=== PATIENT | female | born 1970 | race Caucasian/White ===

== ENCOUNTER → 2018-11-06 | Outpatient (CLI) | payer BC ==
--- NOTE | 2018-11-09 08:19 | MM ---
Reason for exam: screening (asymptomatic). Last mammogram was performed 2 years and 11 months ago. Physical Findings: A clinical breast exam by your physician is recommended on an annual basis and results should be correlated with mammographic findings. MG Screening Mammo w CAD Bilateral CC and MLO view(s) were taken. Prior study comparison: December 15, 2015, bilateral MG screening mammo w CAD. July 30, 2011, bilateral digital screening mammo w/CAD. The breast tissue is heterogeneously dense. This may lower the sensitivity of mammography. There are benign appearing regional round calcifications in the left breast. There is no discrete abnormality. ASSESSMENT: Benign, BI-RAD 2 RECOMMENDATION: Routine screening mammogram of both breasts in 1 year.
== END | disposition home or self-care (01) ==
LOC: RADMAMWWP 10:05
PROVIDERS: ATTEND Family Medicine
DX: Z12.31 Encounter for screening mammogram for malignant neoplasm of breast (principal)
CPT/HCPCS: 77067

== ENCOUNTER → 2019-03-12 | Outpatient (CLI) | payer BC ==
--- NOTE | 2019-03-12 20:03 | MR ---
EXAMINATION TYPE: MR knee RT wo con DATE OF EXAM: 03/12/2019 COMPARISON: None HISTORY: Rt knee pain TECHNIQUE: Multiplanar, multisequence imaging of the right knee is performed without IV contrast. FINDINGS: MEDIAL MENISCUS: There is a complex tear involving the posterior horn and body of the medial meniscus . 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 CRUCIATE LIGAMENTS: The anterior and posterior cruciate ligaments are intact and unremarkable. COLLATERAL LIGAMENTS: The medial collateral ligament and lateral collateral ligament complex are inta ct. There is a grade 1 MCL strain.. EXTENSOR MECHANISM: Visualized quadriceps and patellar tendons are intact. EFFUSION: Small amount of fluid is seen in the suprapatellar bursa. POPLITEAL CYST: 1.5 x 1.2 x 1.7 cm popliteal fossa cyst TRICOMPARTMENT SPACES: There is narrowing of the tricompartment spaces. There is severe thinning and loss of articular cartilage involving both the medial and lateral patellar facet as well as the artic ular surface of the medial tibia and femur and lateral articular surface of the femur compatible with grade III chondromalacia. BONE MARROW SIGNAL: No focal abnormal marrow signal is appreciated. IMPRESSION: 1. Significant osteoarthritis with marked chondromalacia compatible with grade 3 involving the articu lar medial femur and tibia, patellar cartilage and lateral articular femoral cartilage. 2. Complex tear posterior horn and body medial meniscus. 3. Grade 1 MCL sprain. 4. Intrasubstance signal involving the anterior posterior horn of the lateral meniscus myxoid degener ation favored over subtle tear correlate clinically. 5. There is an intraosseous lesion of the distal diaphysis of the femur which is well-circumscribed a nd has a narrow zone of transition measuring 1.4 cm. Most likely a benign etiology. Correlation with x-ray and bone scan recommended.
== END | disposition home or self-care (01) ==
LOC: RADMRIMAIN 18:38
PROVIDERS: ATTEND Family Medicine
DX: S83.231A Complex tear of medial meniscus, current injury, right knee, initial encounter (principal); S83.411A Sprain of medial collateral ligament of right knee, initial encounter; M89.9 Disorder of bone, unspecified

== ENCOUNTER → 2019-03-29 | Outpatient (CLI) | payer BC ==
[2019-03-29 16:43] LABS: Basophils % (A) 1 %; Eosinophils # (A) 0.1 k/uL (0-0.7); Eosinophils % (A) 3 %; HGB 13.5 gm/dL (11.4-16.0); Lymphocytes # (A) 1.6 k/uL (1.0-4.8); Lymphocytes % (A) 36 %; MCHC 31.3 g/dL (31.0-37.0); MCV 89.4 fL (80.0-100.0); Mean Platelet Volume 8.2; Monocytes # (A) 0.2 k/uL (0-1.0); Monocytes % (A) 5 %; Neutrophils # (A) 2.4 k/uL (1.3-7.7); Neutrophils % (A) 54 %; Platelet Count 237 k/uL (150-450); RDW 12.4 % (11.5-15.5); WBC 4.4 k/uL (3.8-10.6)
== END | disposition home or self-care (01) ==
LOC: LABPAT 16:09
PROVIDERS: ATTEND Orthopaedic Surgery
DX: Z01.812 Encounter for preprocedural laboratory examination (principal); M17.11 Unilateral primary osteoarthritis, right knee
CPT/HCPCS: 36415; 80051; 85025; 87070

== ENCOUNTER 2019-04-05 05:45 | Day surgery (SDC) | payer BC ==
[2019-03-31 10:43] VITALS: BMI 34.4
--- NOTE | 2019-04-04 12:06 | HP ---
HISTORY AND PHYSICAL REASON FOR ADMISSION: Surgery is scheduled for 04/05/2019. HISTORY OF PRESENT ILLNESS: Susan Su is a 48-year-old patient seen with symptomatic right knee osteoarthritis. We discussed options for treatment. She elected to proceed with right total knee arthroplasty. Consent regarding the procedure was obtained. PAST MEDICAL HISTORY: Noncontributory. PAST SURGICAL HISTORY: section. MEDICATIONS: Adderall, ibuprofen. ALLERGIES: ARE PAXIL AND CODEINE. SOCIAL HISTORY: She denies tobacco use. PHYSICAL EXAMINATION: Evaluation of the right knee range of motion is -2/3-120. Mild effusion. Tenderness medial joint line. Crepitus medial patellofemoral compartments with range of motion. Pain with patellofemoral compression. Ligaments stable. Hip rotation without pain. Distal neurovascular intact. RADIOGRAPHS: Right knee radiographs reveal severe osteoarthritic changes. IMPRESSION: Right knee osteoarthritis. PLAN: Right total knee arthroplasty. Surgery is 04/05/2019. MMODL / IJN: [id number] /
[~2019-04-05 05:45] MED LIST: ACETAMINOPHEN TAB 500 MG TAB PO ONE; MELOXICAM 7.5 MG TAB PO ONE; TRANEXAMIC ACID 1,000 MG in SODIUM CHLORIDE 0.9% 100 ML IVPB ONE
[2019-04-05] MEDS ORDERED: ROPIVACAINE 246.25 MG, EPINEPHrine 0.5 MG, KETOROLAC 30 MG, cloNIDine HCL/PF 80 MCG, WA... MISCELLANE ONE ×5 (06:00)
[2019-04-05] MEDS ORDERED: DEXAMETHASONE SOD PHOSPHATE 10 MG/ML 1 ML VIAL IV ONE (06:03)
[2019-04-05] MEDS ORDERED: SCOPOLAMINE 1.5MG/72HR PATCH TRANSDERM ONE (06:03)
[2019-04-05] MEDS ORDERED: MIDAZOLAM 2 MG/2 ML VIAL IV PRN (06:03)
[2019-04-05] MEDS ORDERED: ONDANSETRON 4 MG/2 ML VIAL IVP ONE (06:03)
[2019-04-05] MEDS ORDERED: LACTATED RINGERS 1,000 ML IV SCH (06:03)
[2019-04-05] MEDS ORDERED: fentaNYL (PF) 50 MCG/ML 2 ML AMP IV PRN (06:03)
[2019-04-05] MEDS ORDERED: MIDAZOLAM 2 MG/2 ML VIAL IVP ONE (06:51)
[2019-04-05] MEDS ORDERED: fentaNYL (PF) 50 MCG/ML 2 ML AMP IVP ONE (06:52)
[2019-04-05] MEDS ORDERED: TRANEXAMIC ACID 1,000 MG/10 ML VIAL ONE (07:28)
[2019-04-05] MEDS ORDERED: LIDOCAINE 1% INJ 10MG/ML (20 ML MDV) ONE (07:28)
[2019-04-05] MEDS ORDERED: MIDAZOLAM 2 MG/2 ML VIAL ONE (07:28)
[2019-04-05] MEDS ORDERED: SODIUM CHLORIDE 0.9% 100 ML BAG ONE (07:28)
[2019-04-05] MEDS ORDERED: ROCURONIUM BROMIDE 10 MG/ML 5 ML VIAL IV ONE (07:28)
[2019-04-05] MEDS ORDERED: PROPOFOL 10 MG/ML 20 ML VIAL IV ONE (07:28)
[2019-04-05] MEDS ORDERED: SUCCINYLCHOLINE CHLORIDE 100 MG/5 ML SYR IV ONE (07:28)
[2019-04-05] MEDS ORDERED: fentaNYL (PF) 50 MCG/ML 2 ML AMP ONE (07:28)
--- NOTE | 2019-04-05 07:59 | P.ANPRN ---
Procedure Note - Anesthesia - Nerve Block Performed Right Adductor Canal Infusion Time Out Performed: Yes Date of Procedure: 04/05/19 Procedure Start Time: 06:50 Location of Patient: PreOp Indication: Acute Post-Operative Pain, Dx/Pain Location, Requested by Surgeon Sedation Type: Sedate with meaningful contact maintained Position: Supine Catheter: Indwelling Needle Types: Pajunk Needle Gauge: 21 Ultrasound used to visualize needle placement: Yes Ultrasound used to observe medication spread: Yes Injectate: 0.5% Ropivacaine (see comment for volume) (20ml) Blood Aspirated: No Pain Paresthesia on Injection Noted: No Resistance on Injection: Normal Image Stored and Saved: Yes Events: Uneventful and Well Tolerated
--- NOTE | 2019-04-05 08:02 | P.ANPRN ---
Procedure Note - Anesthesia - Nerve Block Performed Right Other (see comment) Single Time Out Performed: Yes (RIGHT IPACK NERVE BLOCK WITH USG) Date of Procedure: 04/05/19 Procedure Start Time: 06:55 Location of Patient: PreOp Indication: Acute Post-Operative Pain, Dx/Pain Location, Requested by Surgeon Sedation Type: Sedate with meaningful contact maintained Preparation: Sterile Prep Position: Left Lateral Catheter: None Needle Gauge: 21 Ultrasound used to visualize needle placement: Yes Ultrasound used to observe medication spread: Yes Injectate: 0.5% Ropivacaine (see comment for volume) (20ml) Blood Aspirated: No Pain Paresthesia on Injection Noted: No Resistance on Injection: Normal Image Stored and Saved: Yes Events: Uneventful and Well Tolerated
[2019-04-05] MEDS ORDERED: ceFAZolin 3,000 MG in SODIUM CHLORIDE 0.9% IRRIGATIO 3,000 ML IRRIGATION ONE (08:05)
[2019-04-05] MEDS ORDERED: ROPIVACAINE 0.2%-NS ON-Q PUMP 1,090 MG, EMPTY PAIN BALL 1 EACH MISCELLANE PRN (08:14)
[2019-04-05] MEDS ORDERED: LACTATED RINGERS 1,000 ML IV ONE ×2 (08:51→09:26)
[2019-04-05] MEDS ORDERED: HYDROcodone/APAP 7.5-325MG 1 EACH TAB PO PRN (09:26)
[2019-04-05] MEDS ORDERED: HYDROmorphone 1 MG/ML 1 ML SYRINGE IVP PRN (09:26)
[2019-04-05] MEDS ORDERED: ONDANSETRON 4 MG/2 ML VIAL IVP PRN (09:26)
[2019-04-05] MEDS ORDERED: HYDROcodone/APAP 5-325MG 1 EACH TAB PO PRN (09:26)
[2019-04-05] MEDS ORDERED: HYDROmorphone 0.5 MG/0.5 ML SYRINGE IVP PRN ×2 (09:26)
[2019-04-05] MEDS ORDERED: NALOXONE 0.4 MG/ML 1 ML VIAL IV PRN (09:26)
--- NOTE | 2019-04-05 09:26 | P.OP ---
Date of Procedure: 04/05/19 Preoperative Diagnosis: Right knee osteoarthritis Postoperative Diagnosis: Right knee osteoarthritis Procedure(s) Performed: Right total knee arthroplasty Implants: 1. Depuy attune size 4 right cruciate retaining cemented femur 2. Depuy attune size 4 fixed bearing cemented tibial baseplate 3. Depuy attune size 4 fixed bearing cruciate retaining 12 mm polyethylene tibial insert 4. Depuy attune 35 mm all polyethylene cemented patella Anesthesia: GETA, regional (Adductor canal catheter), local Surgeon: Madhu Ross Certified Ophthalmic Assistant #1: Doron Smith Estimated Blood Loss (ml): 40 Pathology: other (Bone) Condition: stable Disposition: PACU Indications for Procedure: 48-year-old patient seen with symptomatic right knee osteoarthritis. After having options regarding treatment discussed, she elected to proceed with total knee arthroplasty. Operative Findings: See description of procedure Description of Procedure: Patient was taken to the operative suite after having an adductor canal catheter placed by the department of anesthesia. Patient underwent a general anesthetic by the department of anesthesia. Patient was given preoperative IV intake antibiotics and TXA. A well-padded tourniquet was placed about the right lower extremity. The lower extremity was then prepped and draped in the normal sterile orthopedic fashion. The extremity was elevated, a tourniquet was insufflated to 300. A standard anterior incision was made sharply through skin. Dissection was taken down through the subcutaneous soft tissues down to the extensor mechanism. A medial arthrotomy was performed, patella was everted and knee was flexed. There was advanced osteoarthritis noted. I introduced my distal intramedullary femoral drill. I then introduced the distal femoral cutting jig. Moe AGUILLON secured the cutting jig with 2 pins. I held retractors in position while Moe AGUILLON performed the distal femoral resection through the guide area we now removed her distal femoral cutting guide. We now placed our 4-in-1 femoral cutting block and positioned and it was secured with 2 pins by Moe AGUILLON while I held the block in position. The distal femoral finishing was now completed. A proximal tibial cutting guide was positioned. I held the guide in the appropriate position with both hands well Moe AGUILLON inserted stabilizing pins into the guide. Proximal tibial cut was made. We now placed a trial femoral component into position, along with an appropriate size tibial tray and insert. We now took the knee through range of motion and had full extension good flexion and good overall soft tissue balance noted. The patella was everted and stabilized with 2 towel clips held by Moe AGUILLON while I performed a flush with patellar quad tendon utilizing a fresh sawblade. We templated the patella, appropriate drill holes were made. An appropriate trial patella was positioned, knee was taken through full range of motion with the patella tracking very nicely. The trial patella was removed. Drill holes were made through the femoral component. All trial components were removed after marking off the appropriate rotation of the tibia. Retractors were now positioned along the proximal tibia. An appropriate keel punch was made with the appropriate size tibial guide by myself on Moe AGUILLON assisted by holding retractors. At this point appropriate size implants were chosen and opened. The joint was irrigated copiously with pulse lavage mechanical irrigation. The posterior capsule was infiltrated with local analgesic. The w ound was irrigated with pulse lavage mechanical irrigation. We mixed antibiotic methylmethacrylate. We placed the knee into flexion. We placed multiple retractors assisted by Moe AGUILLON to expose the proximal tibia. Once the methyl methacrylate was ready, the tibial component was cemented into place removing any excess methylmethacrylate form by both myself and Moe AGUILLON. The femoral component was cemented into place removing the removing any excess methylmethacrylate performed by both myself and Moe AGUILLON. We then inserted the appropriate size polyethylene tibial insert. We made sure that it was locked into position. We took the knee into full extension, and then back in a flexion making sure we had removed any excess methylmethacrylate. The patellar component was then cemented down and secured with clamp. Excess methylmethacrylate removed. We kept the knee in full extension, patellar clamp in position until methylmethacrylate had hardened. Once it had hardened the patellar clamp was removed. The knee was taken through full range of motion. The patella tracked nicely. There was good soft tissue balancing. The tourniquet was now released. Additional hemostasis was achieved via electrocautery. A second gram of TXA was given. The wound again was irrigated with pulse lavage mechanical irrigation. The superficial soft tissues were infiltrated local analgesic. The extensor mechanism was repaired with Vicryl. We checked the repair with range of motion and it was stable. The subcutaneous soft tissues were repaired with Vicryl in layers. The skin was approximated with pernio/Dermabond. Sterile dressings were applied followed by loose web roll and Mohit bandage. The patient was transferred to a bed, and taken to recovery in stable and satisfactory condition. Moe AGUILLON assisted with this complex procedure.
[2019-04-05 09:44] VITALS: TEMP 97.7
[2019-04-05] MEDS ORDERED: HYDROmorphone 1 MG/ML 1 ML SYRINGE IVP ONE ×2 (09:47→10:05)
[2019-04-05] MEDS ORDERED: HYDROcodone/APAP 5-325MG 1 EACH TAB PO ONE (11:25)
--- NOTE | 2019-04-05 11:48 | XR ---
EXAMINATION TYPE: XR knee limited RT DATE OF EXAM: 04/05/2019 COMPARISON: None HISTORY: Postop knee replacement TECHNIQUE: 2 view right knee FINDINGS: Tibial and femoral components of in place. No acute fractures are evident. Postsurgical sourav nges are within the soft tissues. IMPRESSION: 1. No acute fracture post knee replacement.
[2019-04-05 12:39] VITALS: RESP 16
[2019-04-05 13:34] VITALS: BP 120/72; PULSE 69
== END 2019-04-05 15:49 | disposition home health service (06) ==
LOC: OR 05:45
PROVIDERS: ATTEND Orthopaedic Surgery
DX: M17.11 Unilateral primary osteoarthritis, right knee (principal); Z88.8 Allergy status to other drugs, medicaments and biological substances; Z88.5 Allergy status to narcotic agent; Z98.890 Other specified postprocedural states; Z79.899 Other long term (current) drug therapy; Z79.1 Long term (current) use of non-steroidal anti-inflammatories (NSAID)
CPT/HCPCS: 27447; 97161; 81025; 64450; 64448; 76942; 88300; 73560; C1776; C1713; J2250; J0171; J1100; J0690 ×2; J2405; J2001; J3010; J1885; J1170; J2795 ×2; J0330; J2704; J0735

== ENCOUNTER → 2019-04-12 | Outpatient (CLI) | payer BC ==
--- NOTE | 2019-04-12 19:36 | US ---
EXAMINATION TYPE: US venous doppler duplex LE RT DATE OF EXAM: 04/12/2019 7:04 PM COMPARISON: NONE CLINICAL HISTORY: R22.41 Localized swelling, mass and lump, right... Right knee replacement 1 week ag o. Localized swelling, mass, and lump. No hx of DVT. Patient takes baby aspirin. SIDE PERFORMED: Right TECHNIQUE: The lower extremity deep venous system is examined utilizing real time linear array sonog j luis with graded compression, doppler sonography and color-flow sonography. VESSELS IMAGED: External Iliac Vein (EIV) Common Femoral Vein Deep Femoral Vein Greater Saphenous Vein * Femoral Vein Popliteal Vein Small Saphenous Vein * Proximal Calf Veins (* superficial vessels) Right Leg: No evidence of DVT in veins imaged from popliteal vein to EIV. Rouleaux flow is seen. Burks ited visibility of prox calf veins. Right calf edema is seen. Cannot rule out DVT in vessels below th e knee. Difficult to scan posterior to the knee due to patient's limited range of motion. IMPRESSION: No demonstrated evidence of deep vein thrombosis.
== END | disposition home or self-care (01) ==
LOC: RADUSMAIN 18:02
PROVIDERS: ATTEND Family Medicine
DX: R22.42 Localized swelling, mass and lump, left lower limb (principal)

== ENCOUNTER → 2020-04-24 | Outpatient (CLI) | payer BC ==
--- NOTE | 2020-04-26 08:00 | MM ---
Reason for exam: screening (asymptomatic). Last mammogram was performed 1 year and 6 months ago. Physical Findings: A clinical breast exam by your physician is recommended on an annual basis and results should be correlated with mammographic findings. MG Screening Mammo w CAD Bilateral CC and MLO view(s) were taken. Prior study comparison: November 06, 2018, bilateral MG screening mammo w CAD. December 15, 2015, bilateral MG screening mammo w CAD. The breast tissue is heterogeneously dense. This may lower the sensitivity of mammography. No significant changes when compared with prior studies. ASSESSMENT: Benign, BI-RAD 2 RECOMMENDATION: Routine screening mammogram of both breasts in 1 year.
== END ==
LOC: RADMAMWWP 16:12
PROVIDERS: ATTEND Family Medicine
DX: Z12.31 Encounter for screening mammogram for malignant neoplasm of breast (principal)
CPT/HCPCS: 77067

== ENCOUNTER → 2022-02-12 | Outpatient (CLI) | payer BC ==
--- NOTE | 2022-02-13 18:12 | MM ---
Reason for Exam: Screening (asymptomatic). Last mammogram was performed 1 year(s) and 9 month(s) ago. Patient History: Menarche at age 14. First Full-Term at age 20. Premenopausal. Risk Values: Keerthi 5 year model risk: 0.7%. NCI Lifetime model risk: 6.6%. Prior Study Comparison: 12/15/2015 Bilateral Screening Mammogram, [facility]. 11/06/2018 Bilateral Screening Mammogram, [facility]. 04/24/2020 Bilateral Screening Mammogram, [facility]. Tissue Density: The breast tissue is heterogeneously dense. This may lower the sensitivity of mammography. Findings: Analyzed By CAD. There are some new grouped calcifications at the 12:00 anterior position right breast. Closer evaluation of main dictation recommended. The craniocaudal projection there is a focal area of increased density within the posterior right mid breast. This is 8 cm the nipple. Additional workup is recommended. No suspicious groups of microcalcifications, spiculated or lobular masses, architectural distortion or other secondary signs of malignancy are mammographically apparent. Overall Assessment: Incomplete: need additional imaging evaluation, BI-RAD 0 Management: Diagnostic Mammogram of the right breast. A negative mammogram report should not preclude additional follow up of suspicious palpable abnormalities. Patient should continue monthly self breast exam. A clinical breast exam by your physician is recommended on an annual basis and results should be correlated with mammographic findings. Electronically signed and approved by: Cristobal Martin D.O. Radiologis
== END | disposition home or self-care (01) ==
LOC: RADMAMWWP 16:53
PROVIDERS: ATTEND Family Medicine
DX: Z12.31 Encounter for screening mammogram for malignant neoplasm of breast (principal)
CPT/HCPCS: 77063; 77067

== ENCOUNTER → 2022-02-18 | Outpatient (CLI) | payer BC ==
--- NOTE | 2022-02-18 08:56 | USB ---
Reason for Exam: Additional evaluation requested from abnormal screening. Patient History: Menarche at age 14. First Full-Term at age 20. Premenopausal. Risk Values: Keerthi 5 year model risk: 0.7%. NCI Lifetime model risk: 6.6%. Prior Study Comparison: 11/06/2018 Bilateral Screening Mammogram, [facility]. 04/24/2020 Bilateral Screening Mammogram, [facility]. 02/12/2022 Bilateral MG 3D screening mammo w/cad, [facility]. Findings: The upper section of the breast of the right breast, the axilla of the right breast and the retroareolar of the right breast were scanned. Targeted right breast ultrasound in the retroareolar from and 11-2 o'clock areas demonstrates a hypoechoic irregular shaped mass approximately 8 cm from the nipple measuring 7 x 4 x 3 mm. Overall Assessment: Highly suggestive of malignancy, BI-RAD 5 Management: Ultrasound Core Biopsy of the right breast. A clinical breast exam by your physician is recommended on an annual basis and results should be correlated with mammographic findings. This exam should not preclude additional follow-up of suspicious palpable abnormalities. Results were given to the patient verbally at the time of exam. Electronically signed and approved by: Vicente Sanford DO
--- NOTE | 2022-02-25 10:52 | MM ---
Reason for Exam: Additional evaluation requested from abnormal screening. Last screening mammogram was performed less than 1 month ago. Patient History: Menarche at age 14. First Full-Term at age 20. Premenopausal. Risk Values: Keerthi 5 year model risk: 0.7%. NCI Lifetime model risk: 6.6%. Prior Study Comparison: 07/30/2011 Bilateral Screening Mammogram, [facility]. 12/15/2015 Bilateral Screening Mammogram, [facility]. 11/06/2018 Bilateral Screening Mammogram, [facility]. 04/24/2020 Bilateral Screening Mammogram, [facility]. 02/12/2022 Bilateral MG 3D screening mammo w/cad, [facility]. Tissue Density: Right: The breast tissue is heterogeneously dense. This may lower the sensitivity of mammography. Findings: Analyzed By CAD. Redemonstration of right mass at posterior depth approximately 8 to 10 cm from nipple similar between 11-2 o'clock. Redemonstration of punctate calcifications in the retroareolar region anteriorly. Overall Assessment: Incomplete: need additional imaging evaluation, BI-RAD 0 Management: Diagnostic Breast Ultrasound of the right breast. A clinical breast exam by your physician is recommended on an annual basis and results should be correlated with mammographic findings. This exam should not preclude additional follow-up of suspicious palpable abnormalities. Results were given to the patient verbally at the time of exam. Electronically signed and approved by: Vicente Sanford DO
== END | disposition home or self-care (01) ==
LOC: RADMAMWWP 07:52
PROVIDERS: ATTEND Family Medicine
DX: R92.8 Other abnormal and inconclusive findings on diagnostic imaging of breast (principal)
CPT/HCPCS: 77061; 77065

== ENCOUNTER → 2022-02-27 | Day surgery (SDC) | payer BC ==
--- NOTE | 2022-03-04 13:26 | MM ---
Reason for Exam: Post Procedure Mammogram. Last screening mammogram was performed less than 1 month ago. Patient History: Menarche at age 14. First Full-Term at age 20. Premenopausal. Last menstrual period: 01/31/2022 Risk Values: Keerthi 5 year model risk: 0.7%. NCI Lifetime model risk: 6.6%. Prior Study Comparison: 04/24/2020 Bilateral Screening Mammogram, [facility]. 02/12/2022 Bilateral MG 3D screening mammo w/cad, [facility]. 02/18/2022 Right MG 3D work up w/cad RT, [facility]. Tissue Density: Right: The breast tissue is heterogeneously dense. This may lower the sensitivity of mammography. Pathology Description: Location: 1 o'clock, upper inner quadrant, posterior. Marker Left Behind. Cores: 5 Skin Nicks: 1 Gauge: 13 The procedure of ultrasound guided core biopsy was explained to the patient. Benefits, alternatives, and risks were discussed. An informed consent was then obtained. A timeout was performed. The patient was placed in supine positioning for imaging and for the procedure. The overlying skin was prepped and draped in usual sterile fashion. Lidocaine was used as anesthetic into the skin and subcutaneous tissue up to area of concern in the right breast. A small skin mago was made with surgical scalpel. Under ultrasound guidance, a 12-gauge vacuum assisted biopsy gun device was used to obtain 5 core samples. A biopsy clip was left in lesion. Hydromark coil core marker was placed. The patient tolerated the procedure well without any immediate complication. The patient was kept in the radiology department for short stay after the procedure and then discharged home in stable condition. Postprocedure mammogram: The patient was transferred to mammography for physician ordered post procedure mammogram for clip placement verification. Impression: Successful ultrasound guided core biopsy of area of concern in the right breast, full pathology results to follow. Recommendations: 1. Recommendations are pending pathology results. Pathology Results: Result: Malignant, Invasive ductal carcinoma. RIGHT BREAST, ONE O'CLOCK, NEEDLE CORE BIOPSY: Invasive poorly differentiated ductal carcinoma (grade 3). See Surgical Pathology Cancer Case Summary. Overall Assessment: Malignant Assessment: MG diagnostic mammo RT wo CAD - Right: Known biopsy proven malignancy, BI-RAD 6. Management: Surgical Consultation of the right breast. Electronically signed and approved by: Cristobal Martin D.O. Radiologis
== END ==
LOC: RADUSWWP 10:06
PROVIDERS: ATTEND Family Medicine
DX: C50.211 Malignant neoplasm of upper-inner quadrant of right female breast (principal); I21.9 Acute myocardial infarction, unspecified; Z17.0 Estrogen receptor positive status [ER+]
CPT/HCPCS: 88305; 88342; 88341; 77065; 19083; A4648

== ENCOUNTER → 2022-03-05 | Outpatient (CLI) | payer BC ==
[2022-03-05 15:24] VITALS: BP 145/102; PULSE 96; RESP 16; TEMP 98.5
--- NOTE | 2022-03-05 16:42 | P.GSHP ---
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 Bentley regarding a biopsy-proven right breast invasive ductal carcinoma. She underwent a bilateral mammogram which was screening on [id number]. This revealed a focal area of increased density within the posterior right mid breast. Additional workup was reviewed recommended. The patient underwent a right breast ultrasound on 1220 622. This revealed a 7 x 4 mm hypoechoic irregularly shaped mass 8 cm from the nipple. This was considered highly suggestive of malignancy. A biopsy was done on 1423. This revealed an invasive poorly d ifferentiated grade 3 year. Positive HER-2 negative ductal carcinoma. No lesions of concern were noted in the left breast. Does not feel any lumps masses or nodules of concern in either breast. Was never had surgery on her breast before. She is not complaining of any recent trauma or infection in the breast. Patient had mastitis after breast-feeding her first child. Caffeine: occasional nicotine: none chocolate: occasional BCP: 17 years, stopped at 32 Family History: (her mother is 1 of 17 and there are 159 neices and nephews) paternal aunt: breast cancer paternal cousin: breast cancer at 39 maternal uncle: brain cancer materanl greatgrandmother: breast cancer maternal great grandfather: pancreatic cancer Hormonal History: menarche: 15 , breast fed: yes, age at first : 20 periods ready to start any time, they are regular Surgical History: 2 C sections right knee replacement 4 laproscopic exams for endometirosis Medical History: arthritis ADHD Social HItory: nicotine: none alcohol: occasional holidays drugs: none - Constitutional Constitutional: Denies chills, Denies fever - EENT Eyes: denies blurred vision, denies pain Ears: deny: decreased hearing, tinnitus Ears, nose, mouth and throat: Denies headache, Denies sore throat - Breasts Breasts: bilateral: as per HPI - Cardiovascular Cardiovascular: Denies chest pain, Denies shortness of breath - Respiratory Respiratory: Denies cough, Denies 7 - Gastrointestinal Gastrointestinal: Denies abdominal pain, Denies diarrhea, Denies nausea, Denies vomiting - Genitourinary (Female) Genitourinary: Denies dysuria, Denies hematuria - Menstruation Menstruation: Reports period normal - Musculoskeletal Comment: arthritis - Integumentary Integumentary: Denies pruritus, Denies rash - Neurological Neurological: Denies numbness, Denies weakness - Psychiatric Psychiatric: Denies anxiety, Denies depression - Endocrine Endocrine: Denies fatigue, Denies weight change - Hematologic/Lymphatic Comment: none - Allergic/Immunologic Allergic/Immunologic: Reports seasonal allergies Past Medical History Past Medical History: No Reported History History of Any Multi-Drug Resistant Organisms: None Reported Past Surgical History: Section, Joint Replacement Additional Past Surgical History / Comment(s): C SECTION X2, LAPAROSCOPIC EXAM. Right knee replacement 2020 Past Anesthesia/Blood Transfusion Reactions: No Reported Reaction Past Psychological History: ADD/ADHD Smoking Status: Never smoker Past Alcohol Use History: Occasional Past Drug Use History: None Reported - Past Family History Mother Family Medical History: No Reported History Medications and Allergies Home Medications Medication Instructions Recorded Confirmed Type Dextroamphetamine/Amphetamine 30 mg PO BID 03/31/19 03/05/22 History [Adderall] Ibuprofen [Motrin Ib] 800 mg PO Q8H PRN 03/31/19 03/05/22 History Atorvastatin [Lipitor] 10 mg PO DAILY 02/18/22 03/05/22 History Allergies Allergy/AdvReac Type Severity Reaction Status Date / Time codeine Allergy Itching, Verified 03/05/22 15:21 NAUSEA AND VOMITING paroxetine [From Paxil] Allergy Rash/Hives Verified 03/05/22 15:21 Surgical - Exam Vital Signs Temp Pulse Resp BP Pulse Ox 98.5 F 96 16 145/102 97 03/05/22 15:21 03/05/22 15:21 03/05/22 15:21 03/05/22 15:21 03/05/22 15:21 BMI: 32.9 - General no distress - Eyes normal ocular movement - ENT no hearing loss - Neck trachea midline - Respiratory normal respiratory effort, clear to auscultation - Cardiovascular Rhythm: regular Heart Sounds: normal: S1, S2 - Abdomen Abdomen: soft, non tender, no guarding, no rigid, no rebound - Integumentary normal turgor - Neurologic no disoriented, no combative - Musculoskeletal normal gait - Psychiatric oriented to time, oriented to person, oriented to place, speech is normal, memory intact Breast Exam: BRA: 38DD Inspection: bilatearl grade 2/3 ptosis Palpation: right breast: Positional exam fibrocystic changes, well-healed scar from prior biopsy site no dominant masses or nodules of concern Right axilla: No adenopathy of concern Left breast: Multi-positional exam fibrocystic changes no dominant masses or nodules of concern Left axilla: No adenopathy of concern Results Mammogram reviewed in detail with Dr. De Luna, no calcifications of concern are noted in either breast. The nodularity in the right breast was seen on ultrasound Pathology reviewed grade 3 ER/MA positive HER-2/asia negative T1 lesion Assessment and Plan Assessment: Impression: T1 N0 M0 G3 ER/MA positive HER-2/asia negative right breast invasive ductal carcinoma stage I Arthritis Plan: Genetic testing Presentation of case at tumor board Probable Patton pattern reduction mammoplasty lumpectomy, sentinel node biopsy, possible axillary node dissection CC: Dr. Bentley
== END ==
LOC: WWCWWP 15:01
PROVIDERS: ATTEND Surgery
DX: Z01.411 Encounter for gynecological examination (general) (routine) with abnormal findings (principal); Z85.3 Personal history of malignant neoplasm of breast; M19.90 Unspecified osteoarthritis, unspecified site; Z88.5 Allergy status to narcotic agent; Z88.1 Allergy status to other antibiotic agents

== ENCOUNTER → 2022-03-20 | Outpatient (CLI) | payer BC ==
--- NOTE | 2022-03-22 14:01 | BMR ---
EXAMINATION TYPE: MR breast BILAT wo/w con DATE OF EXAM: 03/20/2022 COMPARISON: 3-D screening mammogram February 12, 2022 BI-RADS 0. Diagnostic right breast mammogram De [id number] BI-RADS 0. Diagnostic right breast ultrasound February 18, 2022 BI-RADS 5. HISTORY: Rt breast cancer on ultrasound-guided biopsy 1:00 lesion 8 cm distance from nipple invasive poorly differentiated ductal carcinoma grade 3. TECHNIQUE: A series of fat and water weighted images in the long and short axis views of both breasts are obtained in conjunction with dynamic contrast MRI with subtraction technique. The patient was i njected with 9 mL intravenous Gadavist gadolinium contrast. Three-dimensional and additional postpr ocessing imaging is created on independent workstation and reviewed during official interpretation of this study. FINDINGS: Heterogeneously dense fibroglandular tissue throughout the bilateral breasts redemonstrated . There are symmetric benign bilateral appearing axillary lymph nodes present. T2 and STIR-weighted i mages show occasional thin-walled cyst scattered throughout the bilateral breasts. Postcontrast imagi ng shows moderate background enhancement bilaterally which is noted to lower MRI sensitivity. Delayed dynamic imaging shows no suspicious internal mammary adenopathy. With regards to the left breast, there is no pathologic enhancement or enhancing masses identified. N o abnormal skin thickening is seen. The chest wall appears intact. With regards to the right breast there is oval enhancing mass measuring 8 x 4 x 10 mm postcontrast ax ial image 897 and sagittal image 30 in the middle the upper slightly inner aspect corresponding to th e area of biopsy-proven malignancy that has heterogeneous postcontrast enhancement with areas of rapi d uptake and washout identified. No additional areas of abnormal enhancement are seen. No suspicious skin thickening noted. The chest wall appears intact. IMPRESSION: MRI identifies biopsy proven neoplasm in the right breast. No MRI evidence for invasive m alignancy in the left breast. No abnormal adenopathy is seen. BI-RADS 2 benign findings left breast BI-RADS 6 biopsy-proven cancer right breast Recommendation: Appropriate surgical and oncologic management of newly diagnosed right breast neoplas m.
== END | disposition home or self-care (01) ==
LOC: RADMRIMAIN 08:00
PROVIDERS: ATTEND Surgery
DX: C50.211 Malignant neoplasm of upper-inner quadrant of right female breast (principal); Z85.3 Personal history of malignant neoplasm of breast
CPT/HCPCS: 77049; A9585

== ENCOUNTER → 2022-03-25 | Outpatient (CLI) | payer BC ==
--- NOTE | 2022-03-25 11:14 | XR ---
EXAMINATION TYPE: XR chest 2V DATE OF EXAM: 03/25/2022 COMPARISON: NONE HISTORY: Newly diagnosed right-sided breast cancer TECHNIQUE: Frontal and lateral views of the chest are obtained. FINDINGS: There is no focal air space opacity, pleural effusion, or pneumothorax seen. The cardiac silhouette size is within normal limits. The osseous structures are intact. IMPRESSION: No acute cardiopulmonary process.
== END | disposition home or self-care (01) ==
LOC: RADXRMAIN 10:42
PROVIDERS: ATTEND Family Medicine
DX: Z01.818 Encounter for other preprocedural examination (principal)
CPT/HCPCS: 71046

== ENCOUNTER → 2022-05-09 | Outpatient (CLI) | payer BC ==
[2022-05-09 16:17] VITALS: BP 160/92; PULSE 105; RESP 17; TEMP 98.2
--- NOTE | 2022-05-09 16:28 | P.PN ---
Progress Note - Text Progress Note Date: 05/09/22 uSsan is a 51 year old white female status post right bresat lumpectomy and SNB on 04-23-22. Her margins were (-), and 5 nodes (-). Tumor size 8 mm. Resection was via a Patton pattern reduction mammoplasty incision. Physical exam: Lungs: Clear Heart: Regular rate and rhythm Axillary incision: Clean and dry Breasts incisions clean and dry there is some slight necrosis at the periareolar superior-lateral region Plan: Remove rest of the shandra Follow-up in 3 week Follow up radiation oncology Follow-up medical oncology CC: DR. Bentley
== END ==
LOC: WWCWWP 16:01
PROVIDERS: ATTEND Surgery
DX: Z90.11 Acquired absence of right breast and nipple (principal); Z88.5 Allergy status to narcotic agent; Z88.9 Allergy status to unspecified drugs, medicaments and biological substances

== ENCOUNTER → 2022-05-30 | Outpatient (CLI) | payer BC ==
[2022-05-30 09:24] VITALS: BP 147/85; PULSE 90; RESP 17; TEMP 98.5
--- NOTE | 2022-05-30 09:57 | P.PN ---
Subjective Progress Note Date: 05/30/22 Principal diagnosis: right breast stage I invasive ductal cancer Susan is a 51 year old white female status post right breast lumpectomy and SNB on 04-23-22. Her margins were (-), and 5 nodes (-). Tumor size 8 mm. Resection was via a Crowell pattern reduction mammoplasty incision. [id number]- The genetic testing performed which revealed a variant of unknown significance in [facility] Note Dr. Abreu 05-20-22 ordered Oncotype; told her score was low no chemotherapy; she will have hormone therapy after radiation Note Dr. Tarango 05-20-22 reviewed The plan is to start radiation after June 05, follow this with hormone therapy. Family History: paternal aunt: bilateral mastectomy mid s paternal cousin: breast cancer at 38 Hormonal History: menarche: 14 , age at first at 20, breast fed: yes periods periods regular Surgical History: 2 C sections knee replacement 3 laproscopic surgeries in her 20's endometriosis Medical history: Negative Social history: Continue: Negative Alcohol: Occasional Drugs: Negative History of systems: HEENT: Negative Lungs: Negative Heart: Negative GI: Negative : History of endometriosis Musculoskeletal: Joint pains Bleeding abnormalities: Negative Objective - Vital Signs Vital signs: Vital Signs Temp 98.5 F 05/30/22 09:22 Pulse 90 05/30/22 09:22 Resp 17 05/30/22 09:22 BP 147/85 05/30/22 09:22 Pulse Ox 96 05/30/22 09:22 FiO2 Intake & Output 05/29/22 05/30/22 05/30/22 18:59 06:59 18:59 Weight 96.162 kg - Constitutional General appearance: Present: cooperative - EENT Eyes: Present: EOMI ENT: Present: hearing grossly normal - Neck Neck: Present: normal ROM - Respiratory Respiratory: bilateral: CTA - Cardiovascular Rhythm: regular Heart sounds: normal: S1, S2 - Integumentary Integumentary: Present: normal turgor - Musculoskeletal Musculoskeletal: Present: gait normal - Psychiatric Psychiatric: Present: A&O x's 3, appropriate affect, intact judgment & insight - Additional findings Additional findings: Breast Exam: BRA: 38D Inspection: Asymmetry of the breast related to right breast crowell pattern reduction mammoplasty, incisions clean and dry and healing well there is still some minimal residual scabbing at the periareolar area and at the trifurcation inferiorly Palpation: Right breast: Multiple positional exam postoperative changes otherwise no dominant masses or nodules of concern Right axilla: No adenopathy of concern axillary incision clean and dry well- healed Left breast: Multiple positional exam fibrocystic changes no dominant masses or nodules of concern Left axilla: No adenopathy of concern Assessment and Plan Assessment: Impression: Patient doing well status post right breast lumpectomy via a crowell pattern reduction mammoplasty for a stage I invasive ductal carcinoma; healing well at this time Note from medical oncology and radiation oncology reviewed Plan: She is to start radiation therapy in the next several weeks Hormone therapy following this Follow up here in 4 months Bilateral mammogram in January CC: Dr. Bentley
== END ==
LOC: WWCWWP 08:59
PROVIDERS: ATTEND Surgery
DX: C50.911 Malignant neoplasm of unspecified site of right female breast (principal); Z80.3 Family history of malignant neoplasm of breast; Z88.5 Allergy status to narcotic agent; Z88.8 Allergy status to other drugs, medicaments and biological substances

== ENCOUNTER → 2022-06-05 | Outpatient (CLI) | payer BC | END | disposition home or self-care (01) | LOC: LABWHC1 09:32 | PROVIDERS: ATTEND Radiology Radiation Oncology | DX: C50.211 Malignant neoplasm of upper-inner quadrant of right female breast (principal); Z71.0 Person encountering health services to consult on behalf of another person | CPT/HCPCS: 36415; 81025 ==

== ENCOUNTER → 2022-10-03 | Outpatient (CLI) | payer BC ==
[2022-10-03 12:42] VITALS: BP 144/96; PULSE 96; RESP 18; TEMP 98
--- NOTE | 2022-10-03 12:57 | P.PN ---
Subjective Progress Note Date: 10/03/22 right breast stage I invasive ductal cancer Susan is a 51 year old white female status post right breast lumpectomy and SNB on 04-23-22. Her margins were (-), and 5 nodes (-). Tumor size 8 mm. Resection was via a Crowell pattern reduction mammoplasty incision. [id number]- The genetic testing performed which revealed a variant of unknown significance in [facility] Note Dr. Abreu 07-19-22 ordered Oncotype; told her score was low no chemotherapy; she will have hormone therapy after radiation she will proceed with tamoxifen and follow with silver recovery operator for uterine surveillance Note Dr. Tarango 08-09-22 reviewed finished radiation on 07-12-22; The patient has started tamoxifen in June. She is tolerating it without difficulty. She is not complaining of any new lumps masses or nodules of concern in either breast. Patient does have asymmetry secondary to cancer surgery on the right side. The asymmetry causes it to be uncomfortable for her. She has difficulty finding clothes to fit properly. And she feels lopsided, the left breast pulling on her back. Family History: paternal aunt: bilateral mastectomy mid 60's paternal cousin: breast cancer at 38 Hormonal History: menarche: 14 , age at first at 20, breast fed: yes periods periods regular Surgical History: 2 C sections knee replacement 3 laproscopic surgeries in her 20's endometriosis Medical history: Negative Social history: Continue: Negative Alcohol: Occasional Drugs: Negative History of systems: HEENT: Negative Lungs: Negative Heart: Negative GI: Negative : History of endometriosis Musculoskeletal: Joint pains Bleeding abnormalities: Negative Objective - Vital Signs Vital signs: Vital Signs Temp 98.0 F 10/03/22 12:39 Pulse 96 10/03/22 12:39 Resp 18 10/03/22 12:39 BP 144/96 10/03/22 12:39 Pulse Ox 96 10/03/22 12:39 FiO2 Intake & Output 10/02/22 10/03/22 10/03/22 18:59 06:59 18:59 Weight 96.162 kg - Constitutional General appearance: Present: cooperative - EENT Eyes: Present: EOMI ENT: Present: hearing grossly normal - Neck Neck: Present: normal ROM - Respiratory Respiratory: bilateral: CTA - Cardiovascular Rhythm: regular Heart sounds: normal: S1, S2 - Gastrointestinal General gastrointestinal: Present: soft - Integumentary Integumentary: Present: normal turgor - Musculoskeletal Musculoskeletal: Present: gait normal - Psychiatric Psychiatric: Present: A&O x's 3, appropriate affect, intact judgment & insight - Additional findings Additional findings: Breast Exam: BRA: 38D; left sided macromastia Inspection: Asymmetry of the breast related to right breast crowell pattern reduction mammoplasty, incisions well healed Palpation: Right breast: Multi-positional exam postoperative changes otherwise no dominant masses or nodules of concern Right axilla: No adenopathy of concern axillary incision clean and dry well- healed Left breast: Multi-positional exam fibrocystic changes no dominant masses or nodules of concern Left axilla: No adenopathy of concern Assessment and Plan Assessment: Impression: Patient doing well status post right breast lumpectomy via a crowell pattern reduction mammoplasty for a stage I invasive ductal carcinoma; healing well at this time Note from medical oncology and radiation oncology reviewed; this finished radiation therapy and is presently on tamoxifen Patient has asymmetry related to right breast surgery and will have a left breast reduction secondary to asymmetry for cancer surgery on the right side Plan: Completed radiation therapy/follow with radiation oncology Tolerating tamoxifen well Left breast reduction mammoplasty secondary to asymmetry related to cancer surgery on the right breast Bilateral mammogram in November in preparation for symmetry procedure on the left side CC: Dr. Bentley
== END ==
LOC: WWCWWP 12:18
PROVIDERS: ATTEND Surgery
DX: D05.11 Intraductal carcinoma in situ of right breast (principal); N64.89 Other specified disorders of breast; Z51.0 Encounter for antineoplastic radiation therapy; Z79.810 Long term (current) use of selective estrogen receptor modulators (SERMs); Z92.3 Personal history of irradiation; Z80.3 Family history of malignant neoplasm of breast; Z88.5 Allergy status to narcotic agent; Z17.0 Estrogen receptor positive status [ER+]; Z88.8 Allergy status to other drugs, medicaments and biological substances

== ENCOUNTER → 2022-11-27 | Outpatient (CLI) | payer BC ==
[2022-11-27 12:28] LABS: INR <0.93 sec (0.93-1.11); Prothrombin Time 10.2 sec (9.9-11.9)
[2022-11-27 13:51] LABS: ALT 20 U/L (8-44); AST 16 U/L (13-35); Albumin/Globulin Ratio 1.74 Ratio (1.60-3.17); Alkaline Phosphatase 63 U/L (41-126); Blood Urea Nitrogen 12.6 mg/dL (9.0-27.0); Calcium 9.2 mg/dL (8.7-10.3); Chloride 107 mmol/L (96-109); Globulin 2.3 d/dL (1.6-3.3); Glucose 102 mg/dL (70-110); Potassium 4.4 mmol/L (3.5-5.5); Sodium 142 mmol/L (135-145); Total Bilirubin 0.3 mg/dL (0.3-1.2); Total Protein 6.3 d/dL (6.2-8.2)
[2022-11-27 13:54] LABS: Basophils # (A) 0.05 X 10*3/uL (0.00-0.10); Eosinophils # (A) 0.17 X 10*3/uL (0.04-0.35); Eosinophils % (A) 3.3 %; HCT 37.2 % (37.2-46.3); Lymphocytes # (A) 1.35 X 10*3/uL (0.90-5.00); Lymphocytes % (A) 26.2 %; MCH 29.6 pg (27.0-32.0); MCHC 32.3 d/dL (32.0-37.0); MCV 91.9 FL (80.0-97.0); Mean Platelet Volume 11.5 FL (9.5-12.2); Monocytes # (A) 0.42 X 10*3/uL (0.20-1.00); Monocytes % (A) 8.1 %; NRBC Per 100 WBC 0 X 10*3/uL (0.00-0.01); Neutrophils # (A) 3.16 X 10*3/uL (1.80-7.70); Neutrophils % (A) 61.2 %; Platelet Count 233 X 10*3/uL (140-440); RBC 4.05 X 10*6/uL (4.10-5.20); RDW 12.2 % (11.5-14.5); WBC 5.16 X 10*3/uL (4.50-10.00)
== END | disposition home or self-care (01) ==
LOC: LABWHC1 07:21
PROVIDERS: ATTEND Physician Assistant
DX: Z01.812 Encounter for preprocedural laboratory examination (principal); E78.5 Hyperlipidemia, unspecified
CPT/HCPCS: 36415; 80053; 85025; 85610

== ENCOUNTER → 2022-11-28 | Outpatient (CLI) | payer BC ==
--- NOTE | 2022-11-28 09:20 | P.PN ---
Subjective Progress Note Date: 11/28/22 Principal diagnosis: right breast stage IA invasive ductal carcinoma, macromastia left breast with asymmetry right breast stage I invasive ductal cancer Susan is a 51 year old white female status post right breast lumpectomy and SNB on 04-23-22. Her margins were (-), and 5 nodes (-). Tumor size 8 mm. Resection was via a Crowell pattern reduction mammoplasty incision. [id number]- The genetic testing performed which revealed a variant of unknown significance in [facility] Note Dr. Abreu 07-19-22 ordered Oncotype; told her score was low no chemotherapy; she will have hormone therapy after radiation she will proceed with tamoxifen and follow with buckle sorter for uterine surveillance note 10-16-22 Dr. Abreu reviewed Note Dr. Tarango 08-09-22 reviewed prior finished radiation on 07-12-22; The patient has started tamoxifen in Jun, 2022. She is tolerating it without difficulty. She is not complaining of any new lumps masses or nodules of concern in either breast. Patient does have asymmetry secondary to cancer surgery on the right side. The asymmetry causes it to be uncomfortable for her. She has difficulty finding clothes to fit properly. And she feels lopsided, the left breast pulling on her back. Family History: paternal aunt: bilateral mastectomy mid 60's paternal cousin: breast cancer at 38 Hormonal History: menarche: 14 , age at first at 20, breast fed: yes periods periods regular Surgical History: 2 C sections knee replacement 3 laproscopic surgeries in her 20's endometriosis Right breast lumpectomy and sentinel node biopsy, lumpectomy done via reduction mammoplasty incision Medical history: Negative Social history: Continue: Negative Alcohol: Occasional Drugs: Negative History of systems: HEENT: Negative Lungs: Negative Heart: Negative GI: Negative : History of endometriosis Musculoskeletal: Joint pains Bleeding abnormalities: Negative Objective - Constitutional General appearance: Present: cooperative - EENT Eyes: Present: EOMI ENT: Present: hearing grossly normal - Neck Neck: Present: normal ROM - Respiratory Respiratory: bilateral: CTA - Cardiovascular Rhythm: regular Heart sounds: normal: S1, S2 - Gastrointestinal General gastrointestinal: Present: soft - Integumentary Integumentary: Present: normal turgor - Musculoskeletal Musculoskeletal: Present: gait normal - Psychiatric Psychiatric: Present: A&O x's 3, appropriate affect, intact judgment & insight - Additional findings Additional findings: Breast Exam: BRA: 38D; left sided macromastia Inspection: Asymmetry of the breast related to right breast crowell pattern reduction mammoplasty for invasive ductal carcinoma, incisions well healed Palpation: Right breast: Multi-positional exam postoperative changes otherwise no dominant masses or nodules of concern Right axilla: No adenopathy of concern axillary incision clean and dry well- healed Left breast: Multi-positional exam fibrocystic changes no dominant masses or nodules of concern Left axilla: No adenopathy of concern Assessment and Plan Assessment: Impression: Patient doing well status post right breast lumpectomy via a crowell pattern reduction mammoplasty for a stage I invasive ductal carcinoma; healing well at this time Note from medical oncology and radiation oncology reviewed; has finished radiation therapy and is presently on tamoxifen Patient has asymmetry related to right breast surgery and will have a left breast reduction secondary to asymmetry for cancer surgery on the right side Plan: Completed radiation therapy/follow with radiation oncology Tolerating tamoxifen well Left breast reduction mammoplasty secondary to asymmetry related to cancer surgery on the right breast Bilateral mammogram prior to surgery Preoperative clearance with Dr. Bentley Risks and benefits of surgery discussed with the patient. Risks include but are not limited to bleeding, infection, reaction to the anesthetic. Additionally the patient may have decreased sensation to the nipple areolar complex and/or necrosis of the nipple areolar complex. She is given the option of seeing a plastic surgeon and declined. CC: Dr. Bentley
[2022-11-28 09:42] VITALS: BP 125/81; PULSE 85; RESP 18; TEMP 98.1
== END ==
LOC: WWCWWP 08:42
PROVIDERS: ATTEND Surgery
DX: N62 Hypertrophy of breast (principal); N64.89 Other specified disorders of breast; Z85.3 Personal history of malignant neoplasm of breast; Z92.3 Personal history of irradiation; Z80.3 Family history of malignant neoplasm of breast; Z88.5 Allergy status to narcotic agent; Z88.8 Allergy status to other drugs, medicaments and biological substances

== ENCOUNTER → 2022-11-28 | Outpatient (CLI) | payer BC ==
--- NOTE | 2022-11-28 13:57 | MM ---
Reason for Exam: Additional evaluation requested from prior study. Last screening mammogram was performed 10 month(s) ago. Patient History: Menarche at age 14. First Full-Term at age 20. Premenopausal. Breast cancer, right, age 51. Breast cancer, right, age 51. Previous chest radiation therapy at age 51. 04/23/2022, Lumpectomy on the Right side. 04/23/2022, Malignant US breast localization RT on the right side. 02/27/2022, Malignant US biopsy breast VAD RT on the right side. Tissue Density: The breast tissue is heterogeneously dense. This may lower the sensitivity of mammography. Findings: Analyzed By CAD. Postsurgical and posttreatment changes right breast. Scattered and regional punctate calcifications on the left are unchanged. Chronic nodularity left breast. No significant change from prior exams on the left. Overall Assessment: Probably benign, BI-RAD 3 Management: Diagnostic Mammogram of the right breast in 6 months. To assess for any evolving posttreatment change. Results were given to the patient verbally at the time of exam. Patient should continue monthly self-breast exams. A clinical breast exam by your physician is recommended on an annual basis. This exam should not preclude additional follow-up of suspicious palpable abnormalities. Electronically signed and approved by: Antony De Luna M.D. Radiologist
== END | disposition home or self-care (01) ==
LOC: RADMAMWWP 09:23
PROVIDERS: ATTEND Surgery
DX: R92.1 Mammographic calcification found on diagnostic imaging of breast (principal); N63.20 Unspecified lump in the left breast, unspecified quadrant; Z85.3 Personal history of malignant neoplasm of breast
CPT/HCPCS: 77062; 77066

== ENCOUNTER 2022-12-10 07:07 | Day surgery (SDC) | payer BC ==
[2022-12-03 16:30] VITALS: BMI 33.2
[~2022-12-10 07:07] MED LIST changes: -ACETAMINOPHEN TAB 500 MG TAB PO ONE; +DEXAMETHASONE SOD PHOSPHATE 4 MG/ML 1 ML VIAL IV ONE; +HEPARIN SODIUM,PORCINE/PF 5,000 UNIT/0.5 ML SYRINGE SQ PRN; +HYDROmorphone 0.5 MG/0.5 ML SYRINGE IVP PRN; +LACTATED RINGERS 1,000 ML IV SCH; +LIDOCAINE 1% (10MG/ML) FOR IV START INTRADERMA PRN; -MELOXICAM 7.5 MG TAB PO ONE; +MIDAZOLAM 2 MG/2 ML VIAL IV PRN; +ONDANSETRON 4 MG/2 ML VIAL IVP ONE; -TRANEXAMIC ACID 1,000 MG in SODIUM CHLORIDE 0.9% 100 ML IVPB ONE
[2022-12-10] MEDS ORDERED: LACTATED RINGERS 1,000 ML IV ONE ×2 (07:37→11:21)
[2022-12-10 08:02] VITALS: RESP 16
[2022-12-10] MEDS ORDERED: LIDOCAINE 1% INJ 10MG/ML (20 ML MDV) ONE (08:52)
[2022-12-10] MEDS ORDERED: fentaNYL (PF) 50 MCG/ML 2 ML AMP ONE (08:52)
[2022-12-10] MEDS ORDERED: HYDROmorphone (PF) 1 MG/ML ONE (08:52)
[2022-12-10] MEDS ORDERED: MIDAZOLAM 2 MG/2 ML VIAL ONE (08:52)
[2022-12-10] MEDS ORDERED: SUCCINYLCHOLINE CHLORIDE 200 MG/10 ML VIAL IV ONE (08:52)
[2022-12-10] MEDS ORDERED: PROPOFOL 10 MG/ML 20 ML VIAL IV ONE (08:52)
--- NOTE | 2022-12-10 11:39 | P.OP ---
Date of Procedure: 12/10/22 Preoperative Diagnosis: Asymmetry of breasts secondary to right breast cancer and surgery with radiation therapy, left breast macromastia Postoperative Diagnosis: Same Procedure(s) Performed: Left breast reduction mammoplasty Anesthesia: PALOMO Surgeon: Raven Romero Estimated Blood Loss (ml): 20 IV fluids (ml): 900 Pathology: other (Left breast tissue) Condition: stable Disposition: same day Indications for Procedure: Macromastia left breast with asymmetry related to right breast prior lumpectomy and radiation therapy for cancer Operative Findings: Dense left breast tissue Description of Procedure: The patient is a 52-year-old white female status post right breast lumpectomy via a reduction mammoplasty incision and radiation therapy for a right breast cancer. She has marked asymmetry of the breast with left breast macromastia. She is going to have a left breast reduction mammoplasty performed. The patient was seen in the preoperative area. Markings were placed for Patton pattern reduction mammoplasty incision. The patient was brought to the operative suite. Following induction of anesthesia both breasts were prepped and draped in a sterile fashion. The markings for the Patton pattern reduction mammoplasty were again traced. The inferior pedicle was de-epithelialized. Following this the area for the medial tissue resection was incised. This was dissected down to the pectoralis muscle. The wedge of tissue was removed. In a similar fashion the lateral wedge of tissue was excised. Dissection was performed down to the pectoralis muscle. A U-shaped section of tissue was removed superior to the inferior pedicle. A #42 cookie cutter was used to excise the nipple areolar complex on the left. After the tissue specimens had been removed the wound was well irrigated. After we were assured that hemostasis was attained 2 GLORIA drains were placed. The drains were secured using nylon suture. Two #10 drains were placed. Surgicel in powder form was placed. The pedicle was secured to the chest wall using 3-0 Vicryl suture. Superior and lateral skin flaps were developed. The flaps were then brought together using 3-0 Vicryl suture. Interrupted 3-0 Vicryl suture was used to bring the vertical and lateral limbs of the mammoplasty incision together. This was followed by 3-0 Vicryl suture running subcutaneous suture. The area for the maturation of the nipple areolar complex was marked using a #42 cookie cutter. This was the same size as the right nipple areolar complex. The skin and subcutaneous tissue were excised. The nipple areolar complex was br ought up into the defect. This was secured using interrupted 3-0 Vicryl suture. 3-0 Vicryl sub continuous suture was then placed. A 4-0 Monocryl running subcuticular suture was placed. The 4-0 Monocryl suture was placed along all of the suture lines. The incisions were examined and appeared to be approximated well. At this point it was determined that a nylon suture be placed at the inferior trifurcation and surgical glue would be placed at the rest of the incisions. The patient tolerated this in stable condition. All instrument and sponge counts were correct at the end of the case. Both GLORIA drains were placed to suction and there was no drainage of concern noted. The weight of the specimen was 344.7 gms. this was sent to pathology.
[2022-12-10 12:16] VITALS: TEMP 97.8
[2022-12-10] MEDS ORDERED: HYDROcodone/APAP 5-325MG 1 EACH TAB ONE (13:19)
[2022-12-10] MEDS ORDERED: diphenhydrAMINE 50 MG/ML 1 ML VIAL ONE (13:19)
[2022-12-10] MEDS ORDERED: diphenhydrAMINE 50 MG/ML 1 ML VIAL IVP ONE (13:22)
[2022-12-10 13:54] VITALS: BP 164/94; PULSE 93
== END 2022-12-10 14:22 | disposition home or self-care (01) ==
LOC: OR 07:07
PROVIDERS: ATTEND Surgery
DX: C50.911 Malignant neoplasm of unspecified site of right female breast (principal); Z85.3 Personal history of malignant neoplasm of breast; Z86.59 Personal history of other mental and behavioral disorders; Z88.5 Allergy status to narcotic agent; Z79.899 Other long term (current) drug therapy
CPT/HCPCS: 81025; 88305; 19318; J2250; J0330; J1200; J1100; J0690; J2405; J2001; J3010; J1170; J2704; J1644

== ENCOUNTER → 2022-12-18 | Outpatient (CLI) | payer BC ==
--- NOTE | 2022-12-18 13:40 | P.PN ---
Progress Note - Text Progress Note Date: 12/18/22 Susan is a 52 year old status post left breast reduction on 12-10-22 related to assymetry from a right breast reduction mammoplasty resection of an invasive ductal cancer on 04-23-22. She has GLORIA drains in place with minimal output at this time. The output is serous in nature. Examination: Lungs: Clear Heart: Regular rate and rhythm Incision: Clean and dry GLORIA output minimal Impression: Patient doing well status post left breast reduction mammoplasty Plan: Removed both GLORIA drains Sutures will stay until next week patient follow up next week CC: Dr. Bentley
== END ==
LOC: WWCWWP 12:57
PROVIDERS: ATTEND Surgery
DX: Z85.3 Personal history of malignant neoplasm of breast (principal); Z90.12 Acquired absence of left breast and nipple; Z88.5 Allergy status to narcotic agent; Z88.8 Allergy status to other drugs, medicaments and biological substances

== ENCOUNTER → 2022-12-27 | Outpatient (CLI) | payer BC ==
--- NOTE | 2022-12-27 08:37 | P.PN ---
Progress Note - Text Progress Note Date: 12/27/22 Susan is a 52 year old status post left breast reduction on 12-10-22 related to assymetry from a right breast reduction mammoplasty resection of an invasive ductal cancer on 04-23-22. She had GLORIA drains in place removed on 12-18-22. Examination: Lungs: Clear Heart: Regular rate and rhythm Incision: Clean and dry Impression: Patient doing well status post left breast reduction mammoplasty Plan: Suture removal Patient doing well will follow-up in 4 months follow up to return to work on 01-13-23 CC: Dr. Bentley Additional CC's: Citlalli Bentley
[2022-12-27 08:42] VITALS: BP 135/86; PULSE 82; RESP 17; TEMP 97.8
== END ==
LOC: WWCWWP 08:14
PROVIDERS: ATTEND Surgery
DX: Z98.890 Other specified postprocedural states (principal); Z85.3 Personal history of malignant neoplasm of breast; Z88.5 Allergy status to narcotic agent; Z88.8 Allergy status to other drugs, medicaments and biological substances

== ENCOUNTER → 2023-01-08 | Outpatient (CLI) | payer BC ==
--- NOTE | 2023-01-08 16:13 | P.PN ---
Progress Note - Text Progress Note Date: 01/08/23 Susan is a 52 year old status post left breast reduction on 12-10-22 related to assymetry from a right breast reduction mammoplasty resection of an invasive ductal cancer on 04-23-22. She had GLORIA drains in place removed on 12-18-22. She is doing well at this time although she does have some minimal separation at the trifurcation the inferior aspect of the incision on the left. Examination: Lungs: Clear Heart: Regular rate and rhythm Incision: Clean and dry Impression: Patient doing well status post left breast reduction mammoplasty Plan: Suture placement a trifurcation of the inferior aspect of the incision Patient doing well will follow-up in 2 weeks Possible return to work after next appointment Following informed consent: The area of concern was prepped using Betadine. 1% lidocaine was used to anesthetize the area of concern. 2 #3 nylon sutures were placed at the trifurcation site. The patient tolerated this in stable condition. CC: Dr. Bentley
== END ==
LOC: WWCWWP 15:40
PROVIDERS: ATTEND Surgery
DX: Z85.3 Personal history of malignant neoplasm of breast (principal); Z98.86 Personal history of breast implant removal; Z88.5 Allergy status to narcotic agent; Z88.8 Allergy status to other drugs, medicaments and biological substances

== ENCOUNTER → 2023-01-24 | Outpatient (CLI) | payer BC ==
--- NOTE | 2023-01-24 15:42 | P.PN ---
Progress Note - Text Progress Note Date: 01/24/23 Susan is a 52 year old status post left breast reduction on 12-10-22 related to assymetry from a right breast reduction mammoplasty resection of an invasive ductal cancer on 04-23-22. She had GLORIA drains in place removed on 12-18-22. She is doing well at this time although she does have some minimal separation at the trifurcation the inferior aspect of the incision on the left. Examination: Lungs: Clear Heart: Regular rate and rhythm Incision: Clean and dry; small amount of skin opening at the trifurcation inferiorly this is granulating well Impression: Patient doing well status post left breast reduction mammoplasty Plan: Suture place a trifurcation removed Patient doing well will follow-up in one month, follow up sooner any questions or concerns Patient may return to work CC: Dr. Bentley
== END ==
LOC: WWCWWP 15:28
PROVIDERS: ATTEND Surgery
DX: Z85.3 Personal history of malignant neoplasm of breast (principal); Z90.12 Acquired absence of left breast and nipple; Z88.5 Allergy status to narcotic agent; Z88.8 Allergy status to other drugs, medicaments and biological substances

== ENCOUNTER → 2023-03-19 | Outpatient (CLI) | payer BC ==
[2023-03-19 14:32] VITALS: BP 146/81; PULSE 98; RESP 18; TEMP 97.8
--- NOTE | 2023-03-19 14:32 | P.PN ---
Subjective Progress Note Date: 03/19/23 Principal diagnosis: right breast stage IA invasive ductal carcinoma/left breast reduction right breast stage IA invasive ductal carcinoma right breast stage I invasive ductal cancer Susan is a 51 year old white female status post right breast lumpectomy and SNB on 04-23-22. Her margins were (-), and 5 nodes (-). Tumor size 8 mm. Resection was via a Patton pattern reduction mammoplasty incision. 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 Abreu 07-19-22 ordered Oncotype; told her score was low no chemotherapy; she will have hormone therapy after radiation she will proceed with tamoxifen and follow with elevator operator for uterine surveillance Bilateral mammogram 11-28-22 BIRAD 3; repeat right breast mammogram in [address] Tarango 02-28-23 reviewed; finished radiation on 07-12-22; The patient has started tamoxifen in Jun, 2022. She is tolerating it without difficulty. She is not complaining of any new lumps masses or nodules of concern in either breast. left breast reduction 12-10-22 Family History: paternal aunt: bilateral mastectomy mid 60's paternal cousin: breast cancer at 38 Hormonal History: menarche: 14 , age at first at 20, breast fed: yes periods periods regular Surgical History: 2 C sections knee replacement 3 laproscopic surgeries in her 20's endometriosis Right breast lumpectomy and sentinel node biopsy, lumpectomy done via reduction mammoplasty incision left breast reduction Medical history: Negative Social history: Continue: Negative Alcohol: Occasional Drugs: Negative History of systems: HEENT: Negative Lungs: Negative Heart: Negative GI: Negative : History of endometriosis Musculoskeletal: Joint pains Bleeding abnormalities: Negative Objective - Constitutional General appearance: Present: cooperative - EENT Eyes: Present: EOMI ENT: Present: hearing grossly normal - Neck Neck: Present: normal ROM - Respiratory Respiratory: bilateral: CTA - Cardiovascular Heart sounds: normal: S1, S2 - Integumentary Integumentary: Present: normal turgor - Musculoskeletal Musculoskeletal: Present: gait normal - Psychiatric Psychiatric: Present: A&O x's 3, appropriate affect, intact judgment & insight - Additional findings Additional findings: Breast Exam: BRA: 38C Inspection: Bilateral grade 1/2 ptosis Palpation: Right breast: Multi-positional exam postoperative changes otherwise no dominant masses or nodules of concern; changes Right axilla: No adenopathy of concern axillary incision clean and dry well- healed Left breast: Multi-positional exam fibrocystic changes no dominant masses or nodules of concern; post op changes Left axilla: No adenopathy of concern Assessment and Plan Assessment: Impression: Patient's status post right breast lumpectomy for stage I invasive ductal carcinoma via a reduction mammoplasty incision 2022 Patient completed radiation therapy Patient is presently on tamoxifen Patient had a left breast reduction mammoplasty in November 2022 Plan: Continue to follow with medical oncology Continue to follow with radiation oncology Patient due for bilateral mammogram November with appointment mammogram left breast May 2023 with appointment CC: Dr. Bentley
== END ==
LOC: WWCWWP 14:15
PROVIDERS: ATTEND Surgery
DX: C50.911 Malignant neoplasm of unspecified site of right female breast (principal); C50.912 Malignant neoplasm of unspecified site of left female breast; Z98.890 Other specified postprocedural states; Z92.3 Personal history of irradiation; Z88.5 Allergy status to narcotic agent; Z88.8 Allergy status to other drugs, medicaments and biological substances; Z17.0 Estrogen receptor positive status [ER+]

== ENCOUNTER → 2023-06-12 | Outpatient (CLI) | payer BC ==
--- NOTE | 2023-06-12 15:01 | MM ---
Reason for Exam: Follow-up at short interval from prior study. Last screening mammogram was performed 6 month(s) ago. Patient History: Menarche at age 14. First Full-Term at age 20. Premenopausal. Breast cancer, right, age 51. Breast cancer, right, age 51. Previous chest radiation therapy at age 51. 04/23/2022, Lumpectomy on the Right side. 04/23/2022, Malignant US breast localization RT on the right side. 02/27/2022, Malignant US biopsy breast VAD RT on the right side. Last menstrual period: 04/16/2023 Prior Study Comparison: 02/12/2022 Bilateral MG 3D screening mammo w/cad, [facility]. 02/18/2022 Right MG 3D work up w/cad RT, [facility]. 04/23/2022 Right MG diagnostic mammo RT wo CAD, [facility]. 11/28/2022 Bilateral MG 3D diag mammo w/cad NIKITA, [facility]. Tissue Density: Right: The breasts are heterogeneously dense, which may obscure small masses. Findings: Analyzed By CAD. Postsurgical and posttreatment changes right breast. No significant change from recent prior. Ongoing follow-up to assess for any evolving posttreatment change. Overall Assessment: Probably benign, BI-RAD 3 Management: Diagnostic Mammogram of both breasts in 6 months. Total one-year follow-up right breast after surgery and radiation. Annual exam of the left breast. Results were given to the patient verbally at the time of exam. Patient should continue monthly self-breast exams. A clinical breast exam by your physician is recommended on an annual basis. This exam should not preclude additional follow-up of suspicious palpable abnormalities. Electronically signed and approved by: Antony De Luna M.D. Radiologist
== END | disposition home or self-care (01) ==
LOC: RADMAMWWP 14:27
PROVIDERS: ATTEND Surgery
DX: R92.331 Mammographic heterogeneous density, right breast (principal); Z85.3 Personal history of malignant neoplasm of breast
CPT/HCPCS: 77061; 77065

== ENCOUNTER → 2023-06-13 | Outpatient (CLI) | payer BC ==
--- NOTE | 2023-06-13 13:59 | P.PN ---
Subjective Progress Note Date: 06/13/23 06-12-23 Principal diagnosis: right breast stage IA invasive ductal carcinoma/left breast reduction Susan is a 52 year old white female status post right breast lumpectomy and SNB on 04-23-22. Her margins were (-), and 5 nodes (-). Tumor size 8 mm. Resection was via a Patton pattern reduction mammoplasty incision. 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 Abreu 07-19-22 ordered Oncotype; told her score was low no chemotherapy; she will have hormone therapy after radiation she will proceed with tamoxifen and follow with bilingual inside sales representative for uterine surveillance Bilateral mammogram 11-28-22 BIRAD 3; repeat right breast mammogram in [address] Tarango 02-28-23 reviewed; finished radiation on 07-12-22; The patient has started tamoxifen in Jun, 2022. She is tolerating it without difficulty. She is not complaining of any new lumps masses or nodules of concern in either breast. left breast reduction 12-10-22 Bilateral mammogram 11-28-22 repeat right breast mammogram in 6 months; this was done on 06-12-23 and repeat bilateral in 6 months recommended Is not complaining of any new lumps masses or nodules of concern in either breast. Family History: paternal aunt: bilateral mastectomy mid 60's paternal cousin: breast cancer at 38 Hormonal History: menarche: 14 , age at first at 20, breast fed: yes periods periods regular Surgical History: 2 C sections knee replacement 3 laproscopic surgeries in her 20's endometriosis Right breast lumpectomy and sentinel node biopsy, lumpectomy done via reduction mammoplasty incision left breast reduction Medical history: Negative Social history: Continue: Negative Alcohol: Occasional Drugs: Negative History of systems: HEENT: Negative Lungs: Negative Heart: Negative GI: Negative : History of endometriosis Musculoskeletal: Joint pains Bleeding abnormalities: Negative Objective - Vital Signs Vital signs: Vital Signs Temp 98.3 F 06/13/23 13:44 Pulse 102 H 06/13/23 13:44 Resp 17 06/13/23 13:44 BP 124/77 06/13/23 13:44 Pulse Ox 98 06/13/23 13:44 FiO2 Intake & Output 06/12/23 06/13/23 06/13/23 18:59 06:59 18:59 Weight 99.79 kg - Constitutional General appearance: Present: cooperative - EENT Eyes: Present: EOMI - Neck Neck: Present: normal ROM - Respiratory Respiratory: bilateral: CTA - Cardiovascular Heart sounds: normal: S1, S2 - Integumentary Integumentary: Present: normal turgor - Musculoskeletal Musculoskeletal: Present: gait normal - Psychiatric Psychiatric: Present: A&O x's 3, appropriate affect, intact judgment & insight - Additional findings Additional findings: Breast Exam: BRA: 38C Inspection: Bilateral grade 1/2 ptosis Palpation: Right breast: Multi-positional exam postoperative changes otherwise no dominant masses or nodules of concern; Right axilla: No adenopathy of concern axillary incision clean and dry well- healed Left breast: Multi-positional exam fibrocystic changes no dominant masses or n odules of concern; post op changes Left axilla: No adenopathy of concern Assessment and Plan Assessment: Impression: Patient's status post right breast lumpectomy for stage I invasive ductal carcinoma via a reduction mammoplasty incision 2022 Patient completed radiation therapy Patient is presently on tamoxifen Patient had a left breast reduction mammoplasty in November 2022 Plan: Continue to follow with medical oncology Continue to follow with radiation oncology Bilateral mammogram in October 2023 months with appointment CC: Dr. Bentley
[2023-06-13 14:20] VITALS: BP 124/77; PULSE 102; RESP 17; TEMP 98.3
== END ==
LOC: WWCWWP 13:24
PROVIDERS: ATTEND Surgery
DX: R92.8 Other abnormal and inconclusive findings on diagnostic imaging of breast (principal); C50.911 Malignant neoplasm of unspecified site of right female breast; C50.912 Malignant neoplasm of unspecified site of left female breast; Z80.3 Family history of malignant neoplasm of breast; Z92.3 Personal history of irradiation; Z79.810 Long term (current) use of selective estrogen receptor modulators (SERMs); Z98.890 Other specified postprocedural states; Z48.817 Encounter for surgical aftercare following surgery on the skin and subcutaneous tissue; Z17.0 Estrogen receptor positive status [ER+]; Z88.5 Allergy status to narcotic agent; Z88.8 Allergy status to other drugs, medicaments and biological substances

== ENCOUNTER → 2023-12-12 | Outpatient (CLI) | payer BC ==
--- NOTE | 2023-12-15 09:22 | MM ---
Reason for Exam: Additional evaluation requested from prior study. Last screening mammogram was performed 12 month(s) ago. Patient History: Menarche at age 14. First Full-Term at age 20. Perimenopausal. Breast cancer, right, age 51. Breast cancer, right, age 51. Previous chest radiation therapy at age 51. 04/23/2022, Lumpectomy on the Right side. 04/23/2022, Malignant US breast localization RT on the right side. 02/27/2022, Malignant US biopsy breast VAD RT on the right side. Tissue Density: The breasts are heterogeneously dense, which may obscure small masses. Findings: Analyzed By CAD. Right breast surgical clips. Benign-appearing calcifications within the bilateral breasts with right breast surgical clips. No new suspicious masses, calcifications or distortions. Overall Assessment: Benign, BI-RAD 2 Management: Screening Mammogram of both breasts in 1 year. Results were given to the patient verbally at the time of exam. Patient should continue monthly self-breast exams. A clinical breast exam by your physician is recommended on an annual basis. This exam should not preclude additional follow-up of suspicious palpable abnormalities. Note on Keerthi scores and lifetime risk: 1. A Keerthi score greater than 3% is considered moderate risk. If this is the case, consider specialist referral to assess eligibility for a risk reducing agent. 2. If overall lifetime risk for the development of breast cancer is 20% or higher, the patient may qualify for future screening with alternating mammogram and breast MRI. [facility], , 12/12/2023 2:54 PM . Electronically signed and approved by: Vicente Sanford DO
== END | disposition home or self-care (01) ==
LOC: RADMAMWWP 14:34
PROVIDERS: ATTEND Surgery
CPT/HCPCS: 77062; 77066

== ENCOUNTER → 2023-12-26 | Outpatient (CLI) | payer BC ==
--- NOTE | 2023-12-26 15:14 | P.PN ---
Subjective Progress Note Date: 12/26/23 Principal diagnosis: right breast stage IA invasive ductal cancer 202212-26-23 Principal diagnosis: right breast stage IA invasive ductal carcinoma/left breast reduction Susan is a 52 year old white female status post right breast lumpectomy and SNB on 04-23-22. Her margins were (-), and 5 nodes (-). Tumor size 8 mm. Resection was via a Patton pattern reduction mammoplasty incision. 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 Abreu 07-19-22 ordered Oncotype; told her score was low no chemotherapy; she will have hormone therapy after radiation she will proceed with tamoxifen and follow with farm equipment mechanic for uterine surveillance Bilateral mammogram 11-28-22 BIRAD 3; repeat right breast mammogram in [address] Tarango 02-28-23 reviewed; finished radiation on 07-12-22; The patient has started tamoxifen in Jun, 2022. She is tolerating it without difficulty. She is not complaining of any new lumps masses or nodules of concern in either breast. left breast reduction 12-10-22 Bilateral mammogram 11-28-22 repeat right breast mammogram in 6 months; this was done on 06-12-23 and repeat bilateral in 6 months recommended Is not complaining of any new lumps masses or nodules of concern in either breast. bilateral mammogram on 12-12-23 BIRAD2, personally interpreted Need of any new lumps masses or nodules of concern, she is not having any nipple discharge or skin changes. Taking the tamoxifen without difficulty. Family History: paternal aunt: bilateral mastectomy mid 60's paternal cousin: breast cancer at 38 Hormonal History: menarche: 14 , age at first at 20, breast fed: yes periods periods regular Surgical History: 2 C sections knee replacement 3 laproscopic surgeries in her 20's endometriosis Right breast lumpectomy and sentinel node biopsy, lumpectomy done via reduction mammoplasty incision left breast reduction Medical history: Negative Social history: Continue: Negative Alcohol: Occasional Drugs: Negative History of systems: HEENT: Negative Lungs: Negative Heart: Negative GI: Negative : History of endometriosis Musculoskeletal: Joint pains Bleeding abnormalities: Negative Objective - Constitutional General appearance: Present: cooperative - EENT Eyes: Present: EOMI ENT: Present: hearing grossly normal - Neck Neck: Present: normal ROM - Respiratory Respiratory: bilateral: CTA - Cardiovascular Rhythm: regular Heart sounds: normal: S1, S2 - Integumentary Integumentary: Present: normal turgor - Musculoskeletal Musculoskeletal: Present: gait normal - Psychiatric Psychiatric: Present: A&O x's 3, appropriate affect, intact judgment & insight - Additional findings Additional findings: Breast Exam: BRA: 38C Inspection: Bilateral grade 1/2 ptosis Palpation: Right breast: Multi-positional exam postoperative changes otherwise no dominant masses or nodules of concern; Right axilla: No adenopathy of concern axillary incision clean and dry well- healed Left breast: Multi-positional exam fibrocystic changes no dominant masses or nodules of concern; post op changes Left axilla: No adenopathy of concern Assessment and Plan Assessment: Impression: Patient's status post right breast lumpectomy for stage I invasive ductal carcinoma via a reduction mammoplasty incision 2022 Patient completed radiation therapy Patient is presently on tamoxifen Patient had a left breast reduction mammoplasty in November 2022 Plan: Continue to follow with medical oncology Continue to follow with radiation oncology follow up for exam in 6 months Bilateral mammogram in October 2024 with appointment CC: Dr. Bentley
[2023-12-26 15:19] VITALS: BP 133/94; PULSE 89; RESP 17; TEMP 97.8
== END ==
LOC: WWCWWP 14:49
PROVIDERS: ATTEND Surgery
DX: C50.911 Malignant neoplasm of unspecified site of right female breast (principal); C50.912 Malignant neoplasm of unspecified site of left female breast; Z92.3 Personal history of irradiation; Z98.890 Other specified postprocedural states; Z88.5 Allergy status to narcotic agent; Z88.8 Allergy status to other drugs, medicaments and biological substances